=== PATIENT | female | born 1955 | race Caucasian/White ===

== ENCOUNTER 2019-01-16 15:12 | Emergency (ER) | payer MEDICARE, OTHER ==
[~2019-01-16] VITALS: Ht 162.6 cm; Wt 104.3 kg
[~2019-01-16 15:12] MED LIST: Cyclobenzaprine5 MG PO; GABA400 PO; HYDACE10B PO; Mobic15 MG PO; Omeprazole20 M1; Prinivil10 MG PO; SIMV40 PO; ZOLP10 PO
[2019-01-16] MEDS ORDERED: Aspir 8181 MG PO (15:48)
[2019-01-16] MEDS ORDERED: PANT40 PO (15:48)
[2019-01-16] MEDS ORDERED: CARV6.25 PO (15:49)
[2019-01-16] MEDS ORDERED: IBUP600 PO (16:15)
[2019-01-16] MEDS ORDERED: Ultram50 MG PO (16:15)
== END 2019-01-16 16:21 | disposition home or self-care (01) ==
LOC: ER 15:12
DX: S63.502A Unspecified sprain of left wrist, initial encounter (principal); S40.012A Contusion of left shoulder, initial encounter; S60.222A Contusion of left hand, initial encounter; S40.022A Contusion of left upper arm, initial encounter; M54.6 Pain in thoracic spine; I10 Essential (primary) hypertension; K21.9 Gastro-esophageal reflux disease without esophagitis; E78.00 Pure hypercholesterolemia, unspecified; Z88.0 Allergy status to penicillin; Z88.2 Allergy status to sulfonamides; Z88.1 Allergy status to other antibiotic agents; Z79.899 Other long term (current) drug therapy; Z79.1 Long term (current) use of non-steroidal anti-inflammatories (NSAID); W01.0XXA Fall on same level from slipping, tripping and stumbling without subsequent striking against object, initial encounter
CPT/HCPCS: 72070; 73030; 73080; 73110; 96372; 99283-25; A9270-GY; J1885